=== PATIENT | female | born 1970 | race Caucasian/White ===

== ENCOUNTER 2020-09-13 07:17 | Outpatient (CLI) | payer OTHER, SELFPAY ==
[2020-09-13 08:07] LABS: Alanine Aminotransferase 40 U/L (14-59); Albumin Level 3.7 g/dL (3.4-5.0); Alkaline Phosphatase 61 U/L (46-116); Anion Gap 10 mmol/L (8-16); Aspartate Amino Transferase 20 U/L (15-37); Bilirubin,Total 0.3 mg/dL (0.00-1.00); Blood Urea Nitrogen 18 mg/dL (7-18); Calcium 9.5 mg/dL (8.5-10.1); Carbon Dioxide 26 mmol/L (21-32); Chloride 104 mmol/L (98-108); Cholesterol 217 mg/dL (0-200); Estimated Glomerular Filt Rate > 60; Glucose 92 mg/dL (70-99); HDL Direct 53 mg/dL (40-60); LDL Cholesterol Calculated 138 mg/dL (<130); Osmolality Calculated 291 mOsm/kg (285-295); Potassium 4.3 mmol/L (3.5-5.1); Sodium 140 mmol/L (136-145); Thyroid Stimulating Hormone 0.26 uIU/mL (0.36-3.74); Triglycerides 132 mg/dL (0-150)
== END 2020-09-13 07:18 | disposition home or self-care (01) ==
LOC: CHSLAB 07:21
PROVIDERS: PCP Nurse Practitioner Family; Visit Provider Nurse Practitioner Family
DX: Z00.00 Encounter for general adult medical examination without abnormal findings (principal); E03.9 Hypothyroidism, unspecified
CPT/HCPCS: 36415; 80053; 80061; 84439; 84443

== ENCOUNTER → 2020-11-19 00:46 | Outpatient (CLI) | payer OTHER, SELFPAY ==
[2020-11-19 18:53] LABS: SARS-CoV-2 RNA PCR Negative
== END ==
PROVIDERS: PCP Nurse Practitioner Family; Visit Provider Internal Medicine Gastroenterology
DX: Z01.812 Encounter for preprocedural laboratory examination (principal); Z20.822 Contact with and (suspected) exposure to COVID-19
CPT/HCPCS: C9803; U0003; U0005

== ENCOUNTER 2020-11-22 01:24 | Day surgery (SDC) | payer OTHER, SELFPAY ==
[2020-11-07 13:01] VITALS: BMI 30.2
[2020-11-22 06:44] VITALS: BP 136/93; PULSE 87; RESP 16; TEMP 36.8; O2SAT 98; BMI 28.9
[2020-11-22] MEDS: LACTATED RINGERS 1,000 ML 150 ML IV CONT (06:57)
--- NOTE | 2020-11-22 07:22 | WPDANESEPPF ---
Anes - Initial Pre Proc Eval Procedure: Operation Date: 11/22/20 08:00 Proposed Procedures p Screening Colonoscopy - Rios Craig MD Date/Time: 11/22/20 07:22 Surgeon: Rios Craig MD Pre Op Diagnosis: neoplasm screening Patient Data Age: 50 Gender: F Height: 5 ft 8 in Weight: 86.3 kg Last Vital Signs Temp 98.3 F 11/22/20 06:44 Pulse 87 11/22/20 06:44 Resp 16 11/22/20 06:44 BP 136/93 H 11/22/20 06:44 Pulse Ox 98 11/22/20 06:44 Allergies Allergy/AdvReac Type Severity Reaction Status Date / Time diphenhydramine Allergy Intermediate Hives and Verified 11/22/20 06:42 [From Benadryl] joint swelling erythromycin base AdvReac Intermediate Abdominal Verified 11/22/20 06:42 cramping Home Medications Medication Instructions Recorded Confirmed Type levothyroxine 137 mcg tablet 137 mcg PO DAILY #30 tablet 09/15/20 11/22/20 Rx Patient hx anesthesia problems: none Family hx anesthesia problems: none PMFSH Past Medical History Medical History History of HPV infection x 2 History of vaginal delivery x 2 Hypothyroidism Surgical History Surgical History History of colposcopy with cervical biopsy x 2 Family History Family History Mother Breast cancer Father Carcinoma of colon Acute myocardial infarction Social History Social History Smoking status: Never smoker Alcohol intake: never Substance use: never Substance use type: does not use Living arrangements: with family Spiritual care concerns: No Anes - Eval Final PreProcedure Day of Procedure 11/22/20 07:22 Patient weight: overweight Heart: regular rate and rhythm Lungs: clear to auscultation Airway: Mallampati scale class II Neurological: alert and oriented Last oral intake: >/= 8 hours ASA classification: II Emergent: no Anesthetic plan: proceed Anesthesia type and monitoring: general GIVS and standard monitoring Informed Consent: The patient's anesthetic plan and its attendant risks and benefits were discussed with the patient/family/POA. Questions were solicited and answers provided to the satisfaction of the patient/family/POA.
--- NOTE | 2020-11-22 07:51 | PM.HPGS ---
History of Present Illness History of Present Illness Consent: Risks, benefits, and alternatives have been discussed and questions answered. Patient agrees to proceed with procedure. Chief complaint: neoplasm screening Narrative: Tamara Butler is a 50 year old female here for first screening colonoscopy, father had colon ca Review of Systems Constitutional: Constitutional: Denies headache(s) and Denies weakness Eyes: Eyes: Denies blurry vision ENT: Reports Normal hearing present, Denies headache(s) and Denies neck pain Cardiovascular: Cardiovascular: Denies chest pain and Denies dyspnea Respiratory: Respiratory: Denies dyspnea Gastrointestinal: Gastrointestinal: Reports no additional gastrointestinal complaints Genitourinary: Genitourinary: Denies dysuria Musculoskeletal: Musculoskeletal: Denies neck pain Integumentary/Breasts: Skin/Breast: Denies dry skin Neurologic: Reports Normal hearing present, Denies headache(s) and Denies weakness Psychiatric: Psychiatric: Denies anxiety Endocrine: Endocrine: Denies change in body appearance Hematologic/Lymphatic: Hematologic/Lymphatic: Denies easy bleeding Allergic/Immunologic: Allergic/Immunologic: Denies urticaria PMFSH Past Medical History Medical History History of HPV infection x 2 History of vaginal delivery x 2 Hypothyroidism Surgical History Surgical History History of colposcopy with cervical biopsy x 2 Family History Family History Mother Breast cancer Father Carcinoma of colon Acute myocardial infarction Social History Social History Smoking status: Never smoker Alcohol intake: never Substance use: never Substance use type: does not use Living arrangements: with family Spiritual care concerns: No Meds Home Medications and Allergies Home Medications Medication Instructions Recorded Confirmed Type levothyroxine 137 mcg tablet 137 mcg PO DAILY #30 tablet 09/15/20 11/22/20 Rx Allergies Allergy/AdvReac Type Severity Reaction Status Date / Time diphenhydramine Allergy Intermediate Hives and Verified 11/22/20 06:42 [From Benadryl] joint swelling erythromycin base AdvReac Intermediate Abdominal Verified 11/22/20 06:42 cramping Vital Signs Vital Signs - 24 hr 11/22/20 06:44 Temperature 98.3 F Pulse Rate 87 Respiratory Rate 16 Blood Pressure 136/93 H Pulse Oximetry 98 Exam Const: General: comfortable and no acute distress HENMT: General nose exam: Normal nares present Eyes: General: appearance normal, both eyes and all related structures Neck: Neck: no JVD Resp: Auscultation: clear to auscultation bilaterally Cardio: Rate: regular rate Rhythm: regular rhythm GI: Inspection: non-distended GI Palp: Yes Soft to palpation Skin: General skin exam: normal color Neuro: General: gait normal Speech: normal speech Extrem: General: normal to inspection Psych: Mental Status: mental status grossly normal Assessment and Plan Assessment and plan (1) Family history of colon cancer in father: Code(s): Z80.0 - Family history of malignant neoplasm of digestive organs Status: Acute Assessment and Plan: proceed with colonoscopy
[2020-11-22 08:18] VITALS: BP 100/68; PULSE 73; RESP 20; O2SAT 97
[2020-11-22 08:28] VITALS: BP 116/81; PULSE 73; RESP 18; O2SAT 99
== END 2020-11-22 08:37 | disposition home or self-care (01) ==
PROVIDERS: PCP Nurse Practitioner Family; Visit Provider Internal Medicine Gastroenterology
PROC: 0DJD8ZZ Inspection of Lower Intestinal Tract, Via Natural or Artificial Opening Endoscopic (ICD-10-PCS; CPT 45378; principal; 2020-11-22 08:00)
DX: Z12.11 Encounter for screening for malignant neoplasm of colon (principal); K63.5 Polyp of colon; K64.8 Other hemorrhoids; Z80.0 Family history of malignant neoplasm of digestive organs; E03.9 Hypothyroidism, unspecified
CPT/HCPCS: 45385; 88305; C9803; J2001; J2704; J7120; U0003; U0005

== ENCOUNTER 2021-01-16 08:17 | Outpatient (CLI) | payer OTHER, SELFPAY ==
--- NOTE | ~2021-01-16 | MM_ITS ---
EXAMINATION: MM screening xuan BI w monse HISTORY: Screening mammogram, family history of breast cancer in her mother. TECHNIQUE: Craniocaudal and mediolateral oblique 3-D tomosynthesis images were obtained and synthetic 2-D images were generated. CAD analysis was submitted and interpreted. COMPARISON: No prior mammogram is available for comparison at this institution. BREAST PARENCHYMAL COMPOSITION: The breasts are heterogeneously dense, which may obscure small masses . FINDINGS: RIGHT BREAST: An asymmetry is present in the middle third of the upper outer quadrant of the breast o n the mediolateral oblique view. LEFT BREAST: There is an obscured mass in the posterior third of the outer breast. IMPRESSION: 1. Bilateral breast findings which may represent the patient's baseline however no comparison is curr ently available. 2. Comparison with prior mammograms is necessary. BI-RADS Category 0: Incomplete: Needs comparison with prior mammograms. Reviewed, dictated and finalized at location A. IMPRESSION: 1. Bilateral breast findings which may represent the patient's baseline however no comparison is currently available. 2. Comparison with prior mammograms is necessary. BI-RADS Category 0: Incomplete: Needs comparison with prior mammograms.
== END 2021-01-16 08:18 | disposition home or self-care (01) ==
LOC: CHSIMG 08:18
PROVIDERS: PCP Nurse Practitioner Family; Visit Provider Nurse Practitioner Family
DX: Z12.31 Encounter for screening mammogram for malignant neoplasm of breast (principal)
CPT/HCPCS: 77063; 77067

== ENCOUNTER 2021-02-03 10:44 | Outpatient (CLI) | payer OTHER, SELFPAY ==
--- NOTE | ~2021-02-03 | XR_ITS ---
EXAMINATION: XR heel RT min 2V INDICATION: Right heel pain TECHNIQUE: Two views of the right calcaneus are obtained. COMPARISON: None available FINDINGS: Bone alignment is normal. There is no fracture. The soft tissues are unremarkable. There is a plantar calcaneal enthesophyte. IMPRESSION: 1. No acute osseous abnormality. Reviewed, dictated and finalized at location B.
--- NOTE | ~2021-02-03 | MMUS_ITS ---
EXAMINATION: MM diagnostic mammo BI, US breast BI complete HISTORY: Bilateral breast mammographic findings on screening mammogram of 01/16/2021 TECHNIQUE: Additional 3-D tomosynthesis images of both breasts were performed and synthetic 2-D image s were generated. CAD analysis was submitted and interpreted. High resolution complete bilateral jairo st ultrasound was performed. COMPARISON: 01/16/2021 bilateral digital screening mammogram FINDINGS: MAMMOGRAPHIC FINDINGS: Approximately 12 mm circumscribed mass in the upper outer left breast at mid depth. ULTRASOUND: There are numerous bilateral sonolucent and hypoechoic circumscribed lesions without internal vascula rity or suspicious shadowing, largest on the right at 1:00 measuring up to 8 mm maximal dimension, th e largest on the left at 1:00 measuring up to 9 mm maximal dimension. IMPRESSION: 1. Probably benign findings 2. Six-month follow-up bilateral breast ultrasound examination is recommended BI-RADS category 3, probably benign findings. Reviewed, dictated and finalized at location A. IMPRESSION: 1. Probably benign findings 2. Six-month follow-up bilateral breast ultrasound examination is recommended BI-RADS category 3, probably benign findings.
--- NOTE | ~2021-02-03 | XR_ITS ---
EXAMINATION: XR foot RT 2V INDICATION: Right lateral foot pain TECHNIQUE: Two views of the right foot are obtained. COMPARISON: None available FINDINGS: No fracture, dislocation, or subluxation are identified on this two view examination. There is mild osteoarthritis at the first metatarsophalangeal joint. A plantar calcaneal enthesophyte is n oted. The soft tissues are unremarkable. IMPRESSION: 1. No acute osseous abnormality. Reviewed, dictated and finalized at location B.
== END 2021-02-03 10:45 | disposition home or self-care (01) ==
LOC: CHSIMG 10:47
PROVIDERS: PCP Nurse Practitioner Family; Visit Provider Student in an Organized Health Care Education/Training Program
DX: M79.671 Pain in right foot (principal); R92.2 Inconclusive mammogram
CPT/HCPCS: 73620; 73650; 76641; 77066

== ENCOUNTER 2021-07-17 10:58 | Outpatient (CLI) | payer OTHER, SELFPAY ==
--- NOTE | ~2021-07-17 | US_ITS ---
US breast BI complete DATE: 07/17/2021 11:33 INDICATION: Six-month follow-up TECHNIQUE: High-resolution ultrasound imaging and color flow imaging of both breasts including all 4 quadrants and subareolar area of COMPARISON: 02/03/2021 bilateral diagnostic mammography and bilateral complete breast ultrasound FINDINGS: In the right breast at 12:00 5 cm from the nipple there is an irregular hypoechoic area christian suring up to 3.9 cm height, 6 mm transverse dimension. No posterior enhancement is evident. There is some adjacent vascularity. Ultrasound-guided biopsy is recommended. No other suspicious mass of either breast is noted. There are multiple scattered cysts and septated cysts of both breasts, the largest on the left at 2:0 0 4 cm from the nipple, measuring 8 x 14 mm. IMPRESSION: BI-RADS Category 4: Suspicious abnormality Recommendation: Ultrasound-guided aspiration and if necessary biopsy of right breast 12:00 5 cm from nipple Reviewed, dictated and finalized at Location A. Reviewed, dictated and finalized at location A. OND SAWER IMPRESSION: BI-RADS Category 4: Suspicious abnormality Recommendation: Ultrasound-guided aspiration and if necessary biopsy of right b reast 12:00 5 cm from nipple
== END 2021-07-17 10:59 | disposition home or self-care (01) ==
LOC: CHSIMG 10:59
PROVIDERS: PCP Nurse Practitioner Family; Visit Provider Student in an Organized Health Care Education/Training Program
DX: R92.8 Other abnormal and inconclusive findings on diagnostic imaging of breast (principal)
CPT/HCPCS: 76641

== ENCOUNTER 2022-02-08 07:20 | Outpatient (CLI) | payer OTHER, SELFPAY ==
[2022-02-08 07:43] LABS: Basophils Absolute Auto 0.05 K/mm3 (0.00-0.10); Basophils Percent Auto 0.9 % (0.0-1.0); Eosinophils Absolute Auto 0.11 K/mm3 (0.02-0.50); Hematocrit 45.1 % (35.0-49.0); Hemoglobin 14.9 g/dL (12.0-15.0); Immature Granulocyte Absolute 0.02 K/mm3 (0.00-0.00); Immature Granulocyte Percent A 0.4 % (0.0-0.0); Lymphocytes Absolute Auto 1.77 K/mm3 (1.10-4.50); Lymphocytes Percent Auto 31.8 % (18.0-42.0); Mean Corpuscular Hemoglobin 30.9 pg (27.0-31.0); Mean Corpuscular Volume 93.6 fL (78.0-102.0); Mean Platelet Volume 10.1 fl (9.2-11.8); Monocytes Absolute Auto 0.65 K/mm3 (0.10-0.90); Monocytes Percent Auto 11.7 % (2.0-11.0); Neutrophils Percent Auto 53.2 % (50.0-70.0); Platelet Count Result 280 K/mm3 (150-420); Red Blood Count 4.82 M/mm3 (4.20-5.40); Red Cell Distribution Width 11.9 % (11.6-14.4); White Blood Count 5.6 K/mm3 (4.8-10.8)
[2022-02-08 08:54] LABS: Alanine Aminotransferase 24 U/L (14-59); Albumin Level 4.1 g/dL (3.4-5.0); Alkaline Phosphatase 63 U/L (46-116); Anion Gap 4 mmol/L (8-16); Aspartate Amino Transferase 18 U/L (15-37); Bilirubin,Total 0.4 mg/dL (0.00-1.00); Blood Urea Nitrogen 22 mg/dL (7-18); Calcium 9.3 mg/dL (8.5-10.1); Carbon Dioxide 30 mmol/L (21-32); Chloride 105 mmol/L (98-108); Cholesterol 207 mg/dL (0-200); Estimated Glomerular Filt Rate > 60; Glucose 87 mg/dL (70-99); HDL Direct 65 mg/dL (40-60); LDL Cholesterol Calculated 123 mg/dL (<130); Osmolality Calculated 290 mOsm/kg (285-295); Potassium 4.7 mmol/L (3.5-5.1); Sodium 139 mmol/L (136-145); Thyroid Stimulating Hormone 0.97 uIU/mL (0.36-3.74); Total Protein 7.2 g/dL (6.4-8.2); Triglycerides 93 mg/dL (0-150)
== END 2022-02-08 07:21 | disposition home or self-care (01) ==
LOC: CHSLAB 07:22
PROVIDERS: PCP Nurse Practitioner Family; Visit Provider Nurse Practitioner Family
DX: E03.9 Hypothyroidism, unspecified (principal); E78.00 Pure hypercholesterolemia, unspecified
CPT/HCPCS: 36415; 80053; 80061; 84443; 85025

== ENCOUNTER 2023-08-15 12:20 | Outpatient (CLI) | payer OTHER, SELFPAY ==
--- NOTE | ~2023-08-15 | MM_ITS ---
EXAMINATION: MM screening xuan BI w monse HISTORY: Screening mammogram, family history of breast cancer in her mother. TECHNIQUE: Craniocaudal and mediolateral oblique 3-D tomosynthesis images were obtained and synthetic 2-D images were generated. CAD analysis was submitted and interpreted. COMPARISON: 02/03/2021, 01/16/2021, 06/26/2013 BREAST PARENCHYMAL COMPOSITION: The breasts are heterogeneously dense, which may obscure small masses . FINDINGS: No suspicious mass, calcification, or architectural distortion are identified in either padmini ast to suggest malignancy. There has been no suspicious interval change. IMPRESSION: 1. No mammographic evidence of malignancy. 2. Recommend routine screening mammography in one year. BI-RADS Category 1: Negative Reviewed, dictated and finalized at location A. 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
== END 2023-08-15 12:21 | disposition home or self-care (01) ==
LOC: CHSIMG 12:21
PROVIDERS: PCP Nurse Practitioner Family; Visit Provider Family Medicine
DX: Z12.31 Encounter for screening mammogram for malignant neoplasm of breast (principal)
CPT/HCPCS: 77063; 77067

== ENCOUNTER 2024-10-01 07:29 | Outpatient (CLI) | payer OTHER, SELFPAY ==
--- NOTE | ~2024-10-01 | MM_ITS ---
EXAMINATION: MM screening xuan BI w monse HISTORY: Screening TECHNIQUE: Craniocaudal and mediolateral oblique 3-D tomosynthesis images were obtained and synthetic 2-D images were generated. CAD analysis was submitted and interpreted. COMPARISON: Comparison to multiple prior studies sequentially, with oldest reviewed study dated 01/16. BREAST PARENCHYMAL COMPOSITION: Not dense: There are scattered areas of fibroglandular density. FINDINGS: There is no evidence of suspicious mass, calcification, or architectural distortion to sugg est malignancy in either breast. There has been no suspicious interval change. IMPRESSION: 1. No mammographic evidence of malignancy. 2. Recommend routine screening mammography in one year. BI-RADS Category 1: Negative Reviewed, dictated and finalized at location A. 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
== END 2024-10-01 07:30 | disposition home or self-care (01) ==
LOC: CHSIMG 07:30
PROVIDERS: PCP Family Medicine; Visit Provider Nurse Practitioner Family
DX: Z12.31 Encounter for screening mammogram for malignant neoplasm of breast (principal)
CPT/HCPCS: 77063; 77067

== ENCOUNTER 2025-05-31 07:11 | Outpatient (CLI) | payer OTHER, SELFPAY ==
--- NOTE | ~2025-05-31 | XR_ITS ---
EXAMINATION: XR knee LT min 4V, 05/31/2025 16:00 CDT HISTORY: M25.562 - Pain in left knee COMPARISON: No comparisons available. Findings: No acute fracture or malalignment. No significant degenerative changes. Soft tissues unremarkable. Impression: No acute fracture or malalignment. Reviewed, dictated and finalized at location A. Impression: No acute fracture or malalignment.
[2025-05-31 07:22] LABS: Hematocrit 39.8 % (35.0-49.0); Hemoglobin 13.3 g/dL (12.0-15.0); Immature Granulocyte Percent A 0.6 % (0.0-0.0); Lymphocytes Absolute Auto 4.66 K/mm3 (1.10-4.50); Mean Corpuscular HGB Conc 33.4 g/dL (32-36); Mean Corpuscular Hemoglobin 30.0 pg (27.0-31.0); Mean Corpuscular Volume 89.8 fL (78.0-102.0); Nucleated Red Blood Cells Absolute Auto 0.00 K/mm3 (0.00-0.00); Nucleated Red Blood Cells Perc 0.0 % (0-0.0); Platelet Count Result 286 K/mm3 (150-420); Red Blood Count 4.43 M/mm3 (4.20-5.40); White Blood Count 9.9 K/mm3 (4.8-10.8)
[2025-05-31 07:56] LABS: Alanine Aminotransferase 23 U/L (6-35); Albumin Level 4.2 g/dL (3.5-5.1); Alkaline Phosphatase 57 U/L (38-126); Anion Gap 10 mmol/L (4-12); Aspartate Amino Transferase 26 U/L (14-36); Bilirubin,Total 0.5 mg/dL (0.2-1.3); Blood Urea Nitrogen 19 mg/dL (7-17); Calcium 9.7 mg/dL (8.4-10.2); Carbon Dioxide 27 mmol/L (22-30); Chloride 105 mmol/L (98-107); Cholesterol 202 mg/dL (0-200); Estimated Glomerular Filt Rate > 60; Glucose 82 mg/dL (65-110); HDL Direct 62 mg/dL; Osmolality Calculated 295 mOsm/kg (285-295); Potassium 3.9 mmol/L (3.4-5.0); Sodium 142 mmol/L (137-145); Total Protein 7.2 g/dL (6.3-8.2); Triglycerides 202 mg/dL (<150)
[2025-05-31 07:58] LABS: Hemoglobin A1C 5.5 % (<5.7)
[2025-05-31 08:27] LABS: Thyroid Stimulating Hormone Reflex 0.269 uIU/mL (0.465-4.68)
[2025-05-31 09:13] LABS: Free T4 Free Thyroxine Reflex 1.33 ng/dL (0.78-2.19)
== END 2025-05-31 07:12 | disposition home or self-care (01) ==
PROVIDERS: PCP Nurse Practitioner Family; Visit Provider Nurse Practitioner Family
DX: Z00.00 Encounter for general adult medical examination without abnormal findings (principal); M25.562 Pain in left knee
CPT/HCPCS: 36415; 73564; 80053; 80061; 83036; 84439; 84443; 85025

== ENCOUNTER 2025-06-08 12:46 | Outpatient (CLI) | payer OTHER, SELFPAY ==
--- NOTE | ~2025-06-08 | US_ITS ---
EXAMINATION:US venous doppler LE LT INDICATION:Left knee pain and swelling. Recent fall. TECHNIQUE: Multiple grayscale, color flow and Doppler images of the left lower extremity deep venous systems were obtained and reviewed. COMPARISON: FINDINGS: The common femoral, superficial femoral and popliteal veins demonstrate normal respiratory variation, augmentation and compressibility. Color flow is also seen within the posterior tibial, peroneal, greater saphenous and profunda veins. IMPRESSION: 1: No left lower extremity deep venous thrombosis. Reviewed, dictated and finalized at location Q.
--- OUTSIDE RECORDS SUMMARY | 2025-06-08 12:52 | XMS_ITS | Clinical Summary ---
Author Organization [facility] Address [address] [place] [id number] Care Team Providers Care Manager Economic Name Role Phone Jazzy Antony NP Primary Care Provider [phone] Francesca Jo MD Unavailable [phone] Allergies Active Allergy Reactions Criticality Noted Date Comments Diphenhydramine Rash,Unknown Medium 03/05/2012 Erythromycin Unknown 03/05/2012 Medications levothyroxine (SYNTHROID) 137 mcg tablet Take 137 mcg by mouth life consultant before breakfast Active Active Problems Problem Noted Date Diagnosed Date Abnormal mammogram 03/12/2022 Family history of breast cancer 03/12/2022 Surgical History Surgery Date Site/Laterality Comments COLONOSCOPY BIOPSY Medical History Medical History Date Comments Thyroid disease Family History Medical History Relation Name Comments Bladder Cancer Father Colon cancer Father Breast cancer Maternal Grandmother Breast cancer Maternal cousin Breast cancer Mother Relation Name Status Comments Father Maternal Grandmother Maternal cousin Mother Social History Tobacco Use Types Packs/Day Years Used Date Smoking Tobacco: Never AUDIT-C Answer Date Recorded Q1: How often do you have a drink containing alc ohol? Monthly or less 08/24/2021 Average Number of Drinks Not on file 021 Frequency of Binge Drinking Not on file 08/09 Personal Safety Answer Date Recorded Getting School Help Needed Not on file 09/13 Comments No Sex and Gender Information Value Date Recorded Sex Assigned at Not on file Legal Sex Female 2:22 AM HAM CURER Gender Identity Not on file Sexual Orientation Not on file Obstetrics History Last Filed Vital Signs Vital Sign Reading Time Taken Comments Blood Pressure - - Pulse - - Temperature - - Respiratory Rate - - Oxygen Saturation - - Inhaled Oxygen Concentration - - Weight 87.5 kg (193 lb) 08/24/2021 9:28 AM HAM CURER Height 172.7 cm (5' 8) 08/24/2021 9:28 AM HAM CURER Body Mass Index 29.35 08/24/2021 9:28 AM HAM CURER Plan of Treatment Not on file Insurance Care Teams Manager Economic Relationship Specialty Start Date End Date Jazzy Antony NP [address] [place] [address] PCP - General Nurse Practitioner 07/20/21 Francesca Jo MD [address] [address] Referring Physician Obstetrics and Gynecology 07/20/21
--- OUTSIDE RECORDS SUMMARY | 2025-06-08 12:52 | XMS_ITS | Clinical Summary ---
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 Role Phone Orin Garrett SEED BUYER Primary Care Provider [phone] Allergies Active Allergy Reactions Criticality Noted Date Comments Diphenhydramine Unknown 03/05/2012 Erythromycin Unknown 03/05/2012 Medications TRI FEMYNOR 0.18/0.215/0.25 MG-35 MCG tablet 9 Active LEVOTHYROXINE 137 MCG tabletIndicatio ns:Hypothyroidi sm TAKE 1 TABLET BY MOUTH EVERY OTHER DAY ALTERNATING WITH 150MCG TABS 7 tablet 0 Active LEVOTHYROXINE 150 MCG tabletIndicatio ns:Hypothyroidi sm TAKE 1 TABLET BY MOUTH EVERY OTHER DAY ALTERNATING WITH (137MCG) TABLET 7 tablet 0 Active Active Problems No known active problems Immunizations Immunization Administration Dates Next Due Tdap (Generic) 10/18/2018 Social History Tobacco Use Types Packs/Day Years Used Date Smoking Tobacco: Never Smokeless Tobacco: Never Alcohol Use Standard Drinks/Week Comments No 0 (1 standard drink = 0.6 oz pur e alcohol) AUDIT-C Answer Date Recorded Frequency of Alcohol Consumption Never 04/29/2019 Average Number of Drinks Not on file 019 Frequency of Binge Drinking Not on file 04/10 Comments Unknown Sex and Gender Information Value Date Recorded Sex Assigned at Not on file Legal Sex Female 5:04 PM CDT Gender Identity Not on file Sexual Orientation Not on file Last Filed Vital Signs Vital Sign Reading Time Taken Comments Blood Pressure 138/88 04/29/2019 8:12 AM CDT Pulse 74 04/29/2019 8:12 AM CDT Temperature 36.7 C (98 F) 04/29/2019 8:12 AM CDT Respiratory Rate 14 04/29/2019 8:12 AM CDT Oxygen Saturation 97% 04/29/2019 8:12 AM CDT Inhaled Oxygen Concentration - - Weight 83 kg (183 lb) 04/29/2019 8:12 AM CDT Height 172.7 cm (5' 8) 04/29/2019 8:12 AM CDT Body Mass Index 27.83 04/29/2019 8:12 AM CDT Plan of Treatment Health Maintenance Due Date Last Done Comments Cervical Cancer Screening Pa p Smear (Age 30 to 64) Every 3 Years 1969 Colorectal Cancer Screening Colonoscopy (10 Years) 1969 Annual Physical 1972 Hepatitis C 1987 Hepatitis B Vaccines (1 of 3 - 19+ 3-dose series) 1988 Pneumococcal Vaccine: 50+ Ye ars (1 of 1 - PCV) 2019 Zoster Vaccines (1 of 2) 2019 Cervical Cancer Screening Pa p with HPV Testing (Age 30 to 64) Every 5 Years 05/21/2022 05/21/2017 Cervical Cancer Screening with HPV 05/21/2022 Mammogram Screening 03/09/2024 03/09/2022 COVID-19 Vaccine (1 - 2023-2 5 season) 2025 DTaP, Tdap and Td Vaccines ( 2 - Td or Tdap) 10/18/2028 10/18/2018 Meningococcal B Vaccine Aged Out No l onger eligible based on patient's age to complete this topic Meningococcal Vaccine Aged Out No dave chelsey eligible based on patient's age to complete this topic RSV Immunizations Under 20 Months Aged Out No longer eligible based on patient's age to complete this topic Procedures Procedure Name Priority Date/Time Associated Diagnosis Comments MAMMOGRAM GENERIC (SCAN ORDER) Routine 03/09/2022 HPV MRNA E6/E7 W/ RFLX GENOTYPES Routine 05/21/2017 5:29 PM CDT from Last 3 Months or Most Recently Relevant to Health Maintenance Results * MAMMOGRAM (03/09/2022) Anatomical Region Laterality Modality Other us Doc Med Group Scanned SCANNING Final Resu lt * HPV MRNA E6/E7 W/ RFLX GENOTYPES (05/21/2017 5:29 PM CDT) HPV MRNA E6/E7 Not Detected NOT DETECTED 05/24/2017 2:16 PM CDT [email or web address] GUILLENCHASE ARNDT Comment: This test was performed using the APTIMA(R) HPV Assay([employer]This assay detects E6/E7 viral messenger RNA (mRNA)from 14 high-risk HPV types (16,18,31,33,35,39,45,51,52,56,58,59,66,68).For additional information please refer to:http://education.PrePay/faq/JVF905k8(This link is being provided for informational/educational purposes only.) HPV HUMAN PAPILLOMAVIRUS REPORT 05/24/2017 2:16 PM CDT [email or web address] MASOOD ARNDT Comment: Not indicatedTest Performed by Alli RojasVeratect Louie Guillen [place],[address] [place] [id number] Holm M.D., Ph.D., Director of [phone], [facility] [id number] SPECIMEN FROM UTERINE CERVIX / Unknown 05/21/2017 5:29 PM CDT 05/21/2017 5:29 PM CDT us Generic Conversion Md [facility]/CYTOLOGY LAURA MUÑOZ Final Result [facility] [id number], [place] [phone] from Last 3 Months or Most Recently Relevant to Health Maintenance Care Teams Beef Cattle Farm Worker Relationship Specialty Start Date End Date Orin Garrett FNP [address] [place] [address] [place] [address] PCP - General Nurse Practitioner Family 10/21/18
== END 2025-06-08 12:47 | disposition home or self-care (01) ==
PROVIDERS: PCP Family Medicine; Visit Provider Nurse Practitioner Family
DX: M79.89 Other specified soft tissue disorders (principal); M79.605 Pain in left leg
CPT/HCPCS: 93971